=== PATIENT | female | born 1965 | race Two or more races ===

== ENCOUNTER 2019-01-13 05:18 | Day surgery (SDC) | payer OTHER ==
[~2019-01-13 05:18] MED LIST: DICLOFENAC-MIS1 EAC3 PO; PROTONIX40 M1 PO; ZANTAC150 M3 PO; ZYRTEC10 M3 PO
[2019-01-30] MEDS ORDERED: TYLENOL EXTRA500 MG PO (10:23)
[2019-01-30] MEDS ORDERED: EPIDIOLEX100 MG/1 M PO (10:24)
== END 2019-01-13 14:15 | disposition home or self-care (01) ==
LOC: CIR.AMB 05:18 → EDSTATUS 07:30 → CIR.AMB 07:30 → SURG 07:30 → CIR.AMB 14:15
DX: M23.322 Other meniscus derangements, posterior horn of medial meniscus, left knee (principal); M65.862 Other synovitis and tenosynovitis, left lower leg

== ENCOUNTER 2019-02-03 05:12 | Day surgery (SDC) | payer OTHER ==
[~2019-02-03 05:12] MED LIST changes: +EPIDIOLEX100 MG/1 M PO; +TYLENOL EXTRA500 MG PO
[2019-02-03] MEDS ORDERED: TRAM1TAB98 PO (08:51)
[2019-02-03] MEDS ORDERED: DUI500 PO (08:51)
== END 2019-02-03 12:32 | disposition home or self-care (01) ==
LOC: CIR.AMB 05:12
DX: M23.321 Other meniscus derangements, posterior horn of medial meniscus, right knee (principal); M65.861 Other synovitis and tenosynovitis, right lower leg

== ENCOUNTER 2022-06-15 02:26 | Emergency (ER) | payer OTHER ==
[~2022-06-15] VITALS: Ht 160 cm; Wt 99.8 kg
[~2022-06-15 02:26] MED LIST changes: +DUI500 PO; +TRAM1TAB98 PO
[2022-06-15] MEDS ORDERED: PEPCID AC10 MG (02:30)
[2022-06-15] MEDS ORDERED: PROMETHAZINE W473 ML PO (04:59)
== END 2022-06-15 05:59 | disposition home or self-care (01) ==
LOC: ER 02:26
DX: R05.9 Cough, unspecified (principal); M19.90 Unspecified osteoarthritis, unspecified site; Z88.6 Allergy status to analgesic agent